=== PATIENT | male | born 1960 | race Caucasian/White ===

== ENCOUNTER 2022-02-06 14:00 | Emergency (ER) | payer OTHER, BC, SELFPAY ==
[2022-02-06 14:16] VITALS: BP 174/114; PULSE 78; RESP 12; TEMP 36.4; O2SAT 97; BMI 25.1
[2022-02-06] MEDS: predniSONE 20 MG TABLET 60 MG PO (14:52)
[2022-02-06] MEDS: KETOROLAC 30 MG/ML inj IM (14:52)
--- NOTE | 2022-02-06 14:57 | ED.NURSE ---
Medication administered per OCT for 05/21 back pain. Appointment found for fundraising specialist.
--- NOTE | 2022-02-06 16:13 | ED.BACK ---
HPI - Back Pain/Injury General Date Seen: 02/06/22 Chief Complaint: Back Injury/Pain Stated Complaint: lower back pain Time Seen by Provider: 02/06/22 14:21 Source: patient Mode of arrival: ambulatory History of Present Illness HPI Narrative: Patient is a 61-year-old male who presents with lower back pain and tingling in his right leg. Symptoms have been present for a couple of weeks. He saw Dr. Watkins in the clinic and had an MRI done on January 31. Results of that showed a new 12 mm disc extrusion at T12-L1, with central canal narrowing and impingement of the L1 nerve root. He also has a disc bulge at L4-5 which is unchanged but shows possible L5 and/or L4 nerve root compression. He complains of moderate to severe pain across his low back. He does not have significant pain radiating to the right leg but he does have tingling down the anterior right leg and also feels that it is somewhat difficult to walk because of some clumsiness in the right leg. He does not have any bowel or bladder changes. No fevers or night sweats. He has been taking ibuprofen or Tylenol but says those are helping with pain. Was not prescribed anything else. He has an appointment with [facility] on February 19, and he is somewhat frustrated that he has to wait that long. He also has been out of his blood pressure medicine and wondered if I could help refill that, but he does not know what he takes. Related Data Previous Rx's Medication Instructions Recorded oxycodone 5 mg tablet 5 mg PO Q6H PRN #10 tab 02/06/22 prednisone 20 mg tablet See Rx Instructions .ROUTE 02/06/22 .COMPLEX #24 tab Review of Systems Status of ROS: Reports: 10 or more systems reviewed and unremarkable except as noted in History and below PFSH PFSH Medical History Hyperlipidemia Hypertension Surgical History No significant past surgical history Social History Smoking Status: Current every day smoker What tobacco products do you use: cigarettes Do you use any of these nicotine containing products: None Second hand tobacco smoke exposure: Yes How often do you have a drink containing alcohol: never AUDIT-C Alcohol total score: 0 Non-prescribed substance use: denies use service: No Exam Const: Vital Signs, click to edit/add: Vital Signs - 24 hr 02/06/22 14:16 Temperature 97.6 F Pulse Rate [Pulse Oximeter] 78 Respiratory Rate 12 Blood Pressure [Ri ght Upper Arm] 174/114 H Pulse Oximetry 97 Documenting provider has reviewed patient's vital signs: yes Common normals: oriented x3 General appearance: cooperative and well kempt Other: Nontoxic male, looks mildly uncomfortable. HENMT: Common normals: normocephalic Head and scalp: normocephalic Eye: Common normals: PERRL General eye: normal appearance of both eyes Pupil: PERRL Neck & C-Spine: Common normals: full ROM and supple Resp: Common normals: normal respiratory effort and clear to auscultation bilaterally Auscultation: clear to auscultation bilaterally Cardio: Common normals: regular rate and no murmurs Rate: regular rate GI: Common normals: Normal to inspection, nondistended, normoactive bowel sounds present and non-tender Back & Pelvis: Common normals: thoracic and lumbar spine normal to inspection Thoracic spine/upper back: normal to inspection Lumbar spine/lower back: normal to inspection, ROM limited, pain with ROM and paraspinal muscle tenderness Other: Diffuse right-sided lumbar tenderness. Extremity: Common normals: normal to inspection Neuro: Common normals: oriented x3 and moves all extremities Other: Patient has 5/5 strength on the left lower extremity. On the right, he does seem to have slight weakness of dorsiflexion of the great toe, though there may be a component of decreased cooperation secondary to pain. Difficult to assess plantar flexion secondary to cooperation. Notes tingling with light touch to the right thigh. Psych: Common normals: mental status grossly normal and thought process normal Appearance: well kempt Thought process: normal thought process Course Course Hospital Course: Patient had 30 mg of Toradol IM and 60 mg of prednisone here. He actually feels improved after those medications. I reviewed his records, including his lumbar spine MRI from January 31. I did call our spine clinic here but we do not apparently have a spine surgeon until March. Thus, I think his appointment on February 19 is going to be the best we can do. I am going to discharge him on a prednisone taper which should last him until his appointment. I gave him oxycodone 10., recommend ibuprofen 400+ Tylenol 1000 mg 3 times daily in the meantime. Vital Signs Vital signs: Initial Vital Signs Temperature 97.6 F 02/06/22 14:16 Temperature Source Temporal Artery Scan 02/06/22 14:16 Pulse Rate 78 02/06/22 14:16 Pulse Rhythm 02/06/22 14:16 Respiratory Rate 12 02/06/22 14:16 Blood Pressure 174/114 H 02/06/22 14:16 Blood Pressure Mean 134 02/06/22 14:16 Blood Pressure Position Sitting 02/06/22 14:16 Pulse Oximetry 97 02/06/22 14:16 Oxygen Delivery Method 02/06/22 14:16 Vital Signs Temperature 97.6 F 02/06/22 14:16 Pulse Rate 78 02/06/22 14:16 Respiratory Rate 12 02/06/22 14:16 Blood Pressure 174/114 H 02/06/22 14:16 Pulse Oximetry 97 02/06/22 14:16 Temperature 97.6 F 02/06/22 14:16 Pulse Rate 78 02/06/22 14:16 Respiratory Rate 12 02/06/22 14:16 Blood Pressure 174/114 H 02/06/22 14:16 Pulse Oximetry 97 02/06/22 14:16 Discharge Plan Discharge Clinical Impression: Lumbar radiculopathy Patient Disposition: Home, Self-Care Condition: Stable Instructions: Lumbar Radiculopathy (ED) Additional Instructions: Medications as prescribed. Recommend a combination ibuprofen 400 mg plus Tylenol 1000 mg 3 times daily with food. Oxycodone can be used for uncontrolled pain. Follow up on February 19 as scheduled. Prescriptions: New prednisone 20 mg tablet See Rx Instructions .ROUTE .COMPLEX Qty: 24 0RF Rx Instructions: 20 mg orally ;Take 3 tabs daily for 4 days, then 2 tabs daily for 4 days, then 1 tab daily for 4 days oxycodone 5 mg tablet 5 mg PO Q6H PRN (Reason: pain) Qty: 10 0RF Follow Up/Referrals: Rm Stevens MD [Primary Care Provider] - Stand Alone [facility]
== END 2022-02-06 16:10 | disposition home or self-care (01) ==
LOC: ED 15:09
PROVIDERS: Emergency Provider Emergency Medicine; PCP Family Medicine
DX: U07.1 COVID-19 (principal)
CPT/HCPCS: 96372; 99283; 99284; J1885; J7512

== ENCOUNTER 2022-02-21 12:38 | Outpatient (CLI) | payer OTHER, BC, SELFPAY ==
--- NOTE | 2022-02-21 13:00 | CRLHL7_ITS ---
For Patients: As a result of the Century Cures Act, medical imaging exams and procedure reports are released immediately into your electronic medical record. You may view this report before your referring provider. If you have questions, please contact your health care provider. INDICATION: Bilateral finger numbness. Cervical spine stenosis. COMPARISON: None. TECHNIQUE: Sagittal T1, T2, and STIR sequences. Axial T2/gradient sequences. FINDINGS: Straightening of the normal cervical lordosis which may be due to most spasm or patient positioning. Otherwise, normal vertebral body facet alignment. No fractures. No vertebral body loss of height. No spondylolisthesis. No ligamentous injury. No suspicious osseous lesions. Normal cord signal. No intradural mass or lesion. C1-2: No spinal canal narrowing. C2-3: No spinal canal neural foraminal narrowing. C3-4: Mild disc degeneration posterior disc bulge. No narrowing of spinal canal. No neural foraminal narrowing. C4-5: Mild disc degeneration posted disc bulge. Mild narrowing of spinal canal. No neural foraminal narrowing. C5-6: Disc degeneration and broad-based disc osteophyte complex. Moderate narrowing of spinal canal. Moderate severe narrowing of the bilateral foramina with impingement of the C6 nerve roots. C6-7: Disc degeneration broad-based disc osteophyte complex. Moderate narrowing of spinal canal. Moderate right and severe left neural foraminal narrowing. Impingement of the left C7 nerve root. C7-T1: No spinal canal or neural foraminal narrowing. IMPRESSION: 1. Straightening of the normal cervical lordosis. Otherwise, normal alignment. No fractures 2. Normal cord signal. 3. Cervical spondylosis. 4. At C4-5, mild narrowing of the spinal canal 5. At C5-6, moderate narrowing of the spinal canal. Moderate to severe narrowing of the bilateral neural foramina with impingement of the C6 nerve roots. 6. At C6-7, moderate narrowing of the spinal canal. Moderate right and severe left neural foraminal narrowing. Impingement of the left C7 nerve root Dictated by Maged Agustin MD @ 02/21/2022 3:33:33 PM (Electronically Signed)
--- NOTE | 2022-02-21 13:45 | CRLHL7_ITS ---
For Patients: As a result of the 21st Century Cures Act, medical imaging exams and procedure reports are released immediately into your electronic medical record. You may view this report before your referring provider. If you have questions, please contact your health care provider. INDICATION: Bilateral lower extremity numbness. Cervical stenosis. COMPARISON: None. TECHNIQUE: Sagittal T1, T2, and STIR sequences. Axial T2/gradient sequences. FINDINGS: Mild upper thoracic curve convex the left midthoracic curve convex to the right. In sagittal plane, normal vertebral body facet alignment. No fractures. No vertebral body loss of height. No ligamentous injury. No suspicious osseous lesions. Normal cord signal. No intradural mass or lesion. Thoracic spondylosis with multilevel disc degeneration and facet arthropathy. T4-5: Mild disc degeneration. No spinal canal neural foraminal narrowing. T5-6: Mild disc generation. No spinal canal or neural foraminal narrowing. T7-8: Disc degeneration and shallow left paracentral disc bulge. No narrowing of spinal canal. No neural foraminal narrowing. T8-9: Disc degeneration. Shallow left paracentral disc bulge. No narrowing of spinal canal. Mild narrowing of the left neural foramen. No narrowing of the right neuroforamen. T9-10: Disk degeneration posterior disc bulge. Mild narrowing of spinal canal. Mild narrowing of bilateral foramina. T10-11: Disc degeneration posterior disc bulge. Mild narrowing of spinal canal. Mild narrowing of the bilateral foramina. T11-12: Disc degeneration. Posterior disc bulge. Left foraminal and extraforaminal disc herniation measures approximately 3 mm in short axis. [id number] narrowing of spinal canal. Mild narrowing of the left neural foramen. No narrowing of the right neural foramen. T12-L1: Disc generation with a right paracentral subarticular disc protrusion measuring approximately 5 mm in short axis (best seen on series 3, image 7). Moderate narrowing of spinal canal. Moderate narrowing of the right neural foramen with potential impingement of the exiting right T12 nerve root. No narrowing of the left neural foramen. There is marrow edema of the articular processes of the right facet joint which may represent stress reaction or inflammation. Normal paraspinal soft tissues. IMPRESSION: 1. Normal alignment. No fractures. 2. Normal cord signal. 3. Thoracic spondylosis. 4. At T8-9, shallow left paracentral disc bulge. No narrowing of the spinal canal. Mild narrowing of the left neural foramina 5. At T9-10 and T10-11, mild narrowing the spinal canal and bilateral neural foramina 6. At T11-12, left foraminal extraforaminal disc herniation. Mild to moderate narrowing of spinal canal. Mild narrowing of the left neuroforamen. 7. At T12-L1, right paracentral and subarticular disc protrusion. Moderate narrowing of spinal canal and right neuroforamen. Potential impingement of the exiting right T12 nerve root Dictated by Maged Agustin MD @ 02/21/2022 3:42:45 PM (Electronically Signed)
== END 2022-02-21 12:39 | disposition home or self-care (01) ==
PROVIDERS: PCP Family Medicine; Visit Provider Orthopaedic Surgery Orthopaedic Surgery of the Spine
DX: M48.02 Spinal stenosis, cervical region (principal); M50.221 Other cervical disc displacement at C4-C5 level; M50.222 Other cervical disc displacement at C5-C6 level; M50.223 Other cervical disc displacement at C6-C7 level; M51.24 Other intervertebral disc displacement, thoracic region; M51.25 Other intervertebral disc displacement, thoracolumbar region; M48.04 Spinal stenosis, thoracic region; R20.0 Anesthesia of skin
CPT/HCPCS: 72141; 72146

== ENCOUNTER 2022-03-07 15:16 | Outpatient (CLI) | payer OTHER, BC, SELFPAY ==
[2022-03-07 14:27] LABS: Alanine Aminotransferase* 21 U/L (4-50); Cholesterol* 224 mg/dL (90-199); HDL Cholesterol* 46 mg/dL (>=40); LDL Cholesterol Calculated 129 mg/dL (<100); Triglycerides* 245 mg/dL (40-149)
== END 2022-03-07 15:17 | disposition home or self-care (01) ==
PROVIDERS: PCP Family Medicine; Visit Provider Family Medicine
DX: E78.5 Hyperlipidemia, unspecified (principal); I10 Essential (primary) hypertension; E78.00 Pure hypercholesterolemia, unspecified
CPT/HCPCS: 80061; 84460

== ENCOUNTER 2022-06-19 08:01 | Outpatient (CLI) | payer BC, SELFPAY ==
[2022-06-19 14:27] LABS: Cholesterol* 140 mg/dL (90-199)
[2022-06-19 14:28] LABS: Alanine Aminotransferase* 25 U/L (4-50); HDL Cholesterol* 49 mg/dL (>=40); LDL Cholesterol Calculated 66 mg/dL (<100); Triglycerides* 127 mg/dL (40-149)
== END 2022-06-19 08:02 | disposition home or self-care (01) ==
PROVIDERS: PCP Family Medicine; Visit Provider Family Medicine
DX: E78.5 Hyperlipidemia, unspecified (principal); E78.00 Pure hypercholesterolemia, unspecified
CPT/HCPCS: 36415; 80061; 84460

== ENCOUNTER 2022-07-09 13:45 | Outpatient (RCR) | payer OTHER, BC, SELFPAY | END 2022-10-24 11:50 | disposition home or self-care (01) | PROVIDERS: PCP Family Medicine; Visit Provider Orthopaedic Surgery Orthopaedic Surgery of the Spine | DX: M48.062 Spinal stenosis, lumbar region with neurogenic claudication (principal); Z51.89 Encounter for other specified aftercare | CPT/HCPCS: 97110; 97112; 97162 ==

== ENCOUNTER 2022-08-09 12:49 | Outpatient (CLI) | payer OTHER, BC, SELFPAY ==
--- NOTE | 2022-08-09 13:00 | CRLHL7_ITS ---
For Patients: As a result of the Century Cures Act, medical imaging exams and procedure reports are released immediately into your electronic medical record. You may view this report before your referring provider. If you have questions, please contact your health care provider. Indication: Lumbar spine stenosis Technique: Multiplanar, multisequence, MRI of the lumbar spine, obtained without contrast. Comparison: MRI lumbar spine 01/31/2022 Findings: Lumbar dextrocurvature. Preserved lordosis. No significant spondylolisthesis. No acute fracture. Chronic anterior wedge configuration of T12-L2. Prominent superior endplate Schmorl`s nodes at L2 and L3. Modic type 1 degenerative endplate marrow signal changes at L3-4. Modic type 2 degenerative marrow signal changes at L2-3 and L5-S1. The conus medullaris terminates at approximately L1-2. Included SI joints are unremarkable. No suspicious findings in the prevertebral and paraspinal soft tissues. A few tiny cystic appearing foci in the included kidneys and right hepatic lobe. T12-L1: Disc bulge, facet arthropathy. Moderate spinal canal stenosis. Moderate right foraminal stenosis. No left foraminal stenosis. L1-L2: Disc bulge, facet arthropathy. Moderate-severe spinal canal stenosis. Mild left foraminal narrowing. No right foraminal stenosis. L2-L3: Disc bulge, facet arthropathy. Moderate spinal canal stenosis. Moderate left foraminal stenosis. No right foraminal stenosis. L3-L4: Disc bulge, facet arthropathy. Moderate spinal canal stenosis. Mild right, moderate-severe left foraminal stenosis. L4-L5: Disc bulge, facet arthropathy. Mild spinal canal narrowing with possible impingement of the descending right L5 nerve root along the lateral recess. Moderate bilateral foraminal stenosis. L5-S1: Disc bulge, facet arthropathy. Mild-moderate right foraminal narrowing. No left foraminal or spinal canal stenosis. Impression: 1. No acute osseus abnormality. Chronic anterior wedge configuration of T12-L2. 2. Lumbar spondylosis as detailed, similar to minimally progressed relative to 01/31/2022. 3. At T12-L1, moderate spinal canal stenosis and moderate right foraminal stenosis. 4. At L1-2, moderate-severe spinal canal stenosis. 5. At L2-3, moderate spinal canal stenosis and moderate left foraminal stenosis. 6. At L3-4, moderate spinal canal stenosis and moderate-severe left foraminal stenosis. 7. At L4-5, possible impingement of the descending right L5 nerve root along the narrowed lateral recess. Dictated by Savannah Dorsey MD @ 08/10/2022 1:09:35 PM (Electronically Signed)
--- NOTE | 2022-08-09 13:45 | CRLHL7_ITS ---
For Patients: As a result of the Century Cures Act, medical imaging exams and procedure reports are released immediately into your electronic medical record. You may view this report before your referring provider. If you have questions, please contact your health care provider. Indication: Thoracic stenosis Technique: Multiplanar, multisequence MRI of the thoracic spine, obtained without contrast. Comparison: MRI thoracic spine 02/21/2022 Findings: Partially visualized ACDF changes spanning C5-7. No acute fracture. No significant spondylolisthesis. Chronic anterior wedge configuration of T10-L1, similar to previous. No cortical retropulsion. Multilevel spondylosis, including scattered shallow disc bulges/protrusions, multilevel facet arthropathy and ligamentum flavum laxity. At T9-10: Mild spinal canal narrowing and mild bilateral foraminal narrowing. At T10-11,: Mild-moderate spinal canal narrowing and mild-moderate bilateral foraminal narrowing. At T11-T12: Mild spinal canal narrowing. At T12-L1: Moderate spinal canal stenosis and moderate right neural foraminal stenosis. No other significant foraminal or spinal canal narrowing elsewhere in the thoracic spine. The visualized spinal cord appears normal in course, caliber, and intrinsic signal. The prevertebral and paraspinal soft tissues are unremarkable. Impression: 1. No acute fracture or significant spondylolisthesis. Partially visualized C5-7 ACDF changes. Chronic anterior wedge configuration of T10-L1. 2. Multilevel thoracic spondylosis, greatest in the lower levels, similar to the prior study. 3. At T9-10, mild spinal canal narrowing and mild bilateral foraminal narrowing. 4. At T10-T11, mild-moderate spinal canal narrowing, and mild-moderate bilateral foraminal narrowing. 5. At T11-T12, mild spinal canal narrowing. 6. At T12-L1, moderate spinal canal stenosis and moderate right foraminal stenosis. Dictated by Savannah Dorsey MD @ 08/10/2022 12:49:14 PM (Electronically Signed)
== END 2022-08-09 12:50 | disposition home or self-care (01) ==
LOC: MRI 12:51
PROVIDERS: PCP Family Medicine; Visit Provider Orthopaedic Surgery Orthopaedic Surgery of the Spine
DX: M48.062 Spinal stenosis, lumbar region with neurogenic claudication (principal); M48.04 Spinal stenosis, thoracic region; M47.896 Other spondylosis, lumbar region; M48.061 Spinal stenosis, lumbar region without neurogenic claudication
CPT/HCPCS: 72146; 72148

== ENCOUNTER 2023-01-21 13:00 | Outpatient (RCR) | payer OTHER, BC, SELFPAY | END 2023-05-21 23:59 | disposition home or self-care (01) | PROVIDERS: PCP Family Medicine; Visit Provider Orthopaedic Surgery Orthopaedic Surgery of the Spine | DX: Z48.89 Encounter for other specified surgical aftercare (principal); R26.9 Unspecified abnormalities of gait and mobility; R53.1 Weakness; R26.81 Unsteadiness on feet; M79.606 Pain in leg, unspecified; M79.673 Pain in unspecified foot; R20.2 Paresthesia of skin; Z51.89 Encounter for other specified aftercare | CPT/HCPCS: 97110; 97112; 97162 ==

== ENCOUNTER 2023-01-31 06:50 | Day surgery (SDC) | payer OTHER, BC, SELFPAY ==
[2023-01-31 07:16] VITALS: BMI 25.5
[2023-01-31 07:19] VITALS: BP 130/88; PULSE 69; RESP 16; TEMP 36.6; O2SAT 97
[2023-01-31] MEDS: SODIUM CHLORIDE 0.9 % (FLUSH) 10 ML SYRINGE IVF (07:35)
[2023-01-31] MEDS: LACTATED RINGERS 1000 ML 1,000 ML 100 ML IV (07:35)
--- NOTE | 2023-01-31 08:58 | W.ANESCHARGE ---
Anesthesia Charges Start Date/Time Anesthesia Start Date: 01/31/23 Anesthesia Start Time: 09:28 Stop Date/Time Anesthesia Stop Date: 01/31/23 Anesthesia Stop Time: 10:10
[2023-01-31] MEDS: CEFAZOLIN 2 GM INJ IVP (09:40)
[2023-01-31] MEDS: BUPIVACAINE 0.25% 30 ML INJECTION (09:53)
[2023-01-31 10:08] VITALS: BP 118/81; PULSE 72; RESP 16; TEMP 36.6; O2SAT 95
--- NOTE | 2023-01-31 10:14 | W.ANESCHARGE ---
Anesthesia Charges Start Date/Time Anesthesia Start Date: 01/31/23 Anesthesia Start Time: 09:28 Stop Date/Time Anesthesia Stop Date: 01/31/23 Anesthesia Stop Time: 10:10
[2023-01-31 10:15] VITALS: BP 124/89; PULSE 67; RESP 16; O2SAT 97
[2023-01-31 10:30] VITALS: BP 132/82; PULSE 65; RESP 16; O2SAT 97
--- NOTE | 2023-01-31 10:35 | PM.GSPRC ---
Operative Note Date of procedure: 01/31/23 Pre-op diagnosis: Mass of the left groin Post-op diagnosis: Same Type of Procedure: Excision of left groin mass Indications: Patient presented to clinic with a symptomatic mass of the left groin following a procedure he had in August. This was worked up with ultrasound and consistent with a postoperative calcification versus scar tissue verses calcified lymph node. Given the symptomatic nature of the mass risks and benefits of excision were discussed at length with the patient. Risks included, but were not limited to: Bleeding, infection, risk of damage to surrounding structures, risk of seroma, risk of lymphatic leak and possible need for additional procedures. All questions concerns were addressed with patient agreeing to proceed. Procedure Description: After discussing the risks and benefits of the procedure, the patient signed informed consent.? The operative site was marked and the patient was brought to the operating room and placed on the operating table in supine position.? Care was taken to pad the patient's pressure points.?? The patient was then given sedation by anesthesia.?? The operative site was then prepped and draped in the usual sterile fashion.? A time-out was then performed. The area was prepped and draped in sterile fashion. The area was anesthetized with local anesthetic. A vertical incision was made with a scalpel directly over the mass, which was mobile within the subcutaneous space. Dissection was carried down through subcutaneous tissue. The mass was encountered, an Allis clamp was applied and brought into the operative field. And overlying nerve was stretched over the mass. This was carefully dissected away, taking care not to injure the associated vasculature or nerve itself. The mass was then dissected out circumferentially. A small pedicle was seen, this was tied off with 3 0 Vicryl. The mass was then removed and sent to pathology for further evaluation. Hemostasis was assured with electrocautery. The incision was closed in layers of interrupted 3 0 Vicryl and running 4-0 Monocryl subcuticular stitch. Sterile dressings were then applied. ? The patient was then woken and transported to the recovery area in stable condition. ? The patient tolerated the procedure well. Findings: Mass of the left groin. Anesthesia: MAC and local Surgeon: Meredith Leung MD Estimated blood loss (mL): 1 Additional Specimen Information: Mass of the left groin Condition: stable Disposition: same day
[2023-01-31 10:45] VITALS: BP 132/92; PULSE 68; RESP 16; O2SAT 97
== END 2023-01-31 11:00 | disposition home or self-care (01) ==
PROVIDERS: PCP Family Medicine; Visit Provider Surgery
PROC: (CPT 11406; principal; 2023-01-31 08:30)
DX: R22.2 Localized swelling, mass and lump, trunk (principal); D17.39 Benign lipomatous neoplasm of skin and subcutaneous tissue of other sites
CPT/HCPCS: 11406; 12031; 00400; 88305; J0690; J2250; J2704; J3490; J7120

== ENCOUNTER 2025-02-24 13:46 | Outpatient (CLI) | payer MEDICARE, SELFPAY | END 2025-02-24 13:47 | disposition home or self-care (01) | LOC: LKVREF 13:50 | PROVIDERS: PCP Family Medicine; Visit Provider Nurse Practitioner Family | DX: E78.00 Pure hypercholesterolemia, unspecified (principal); I10 Essential (primary) hypertension; Z12.5 Encounter for screening for malignant neoplasm of prostate | CPT/HCPCS: 80053; 80061; G0103 ==

== ENCOUNTER 2025-03-03 10:47 | Outpatient (CLI) | payer MEDICARE, SELFPAY ==
--- NOTE | 2025-03-03 11:00 | CRLHL7_ITS ---
For Patients: As a result of the Century Cures Act, medical imaging exams and procedure reports are released immediately into your electronic medical record. You may view this report before your referring provider. If you have questions, please contact your health care provider. INDICATION: High risk patient presenting for LDCT lung cancer screening. VISIT TYPE: Baseline COMPARISON: None available. TECHNIQUE: Low dose CT of the chest without intravenous contrast. Please note that all CT scans at this facility use dose modulation, iterative reconstruction, and/or weight-based dosing when appropriate to reduce radiation dose to as low as reasonably achievable. FINDINGS: Lung Screening Specific (LUNG-RADS) Findings: Bilateral pulmonary nodules, largest measuring 4.7 mm in mean diameter located in the left upper lobe (series 3; image 80). Pulmonary Incidental Findings: Benign calcified right lower lobe granuloma. Bilateral calcified hilar lymph nodes are also consistent with the sequela of old granulomatous disease. Bilateral lower lobe posterior/dependent subpleural curvilinear opacities consistent with minor fibrosis. Potentially Significant (S-Positive) Incidental Findings: None. Please note that emphysema and coronary artery calcifications are not routinely categorized as S-Positive findings as both conditions are expected among individuals eligible for lung cancer screening. Furthermore, findings that are already known and/or have been or are in the process of clinical evaluation also do not require an S modifier per Lung-RADS 2022 guidelines. Other Incidental Findings: Mild coronary artery calcifications are noted, without significant change. PCP evaluation for ASCVD (atherosclerotic cardiovascular disease) risk assessment is recommended per lung cancer screening guidelines, if not already done. Simple hepatic cysts in the superior right hepatic lobe, the larger measuring 2.3 cm in AP dimension (5; 144). A smaller cyst measuring 1.0 cm is immediately adjacent (2; 127). Incompletely imaged cervical and thoracolumbar spinal fusion hardware. Advanced disc degeneration at T8-T9 and T9-T10. Bilateral glenohumeral osteoarthrosis. IMPRESSION: 1. Lung-RADS category 2 benign pulmonary nodules. 2. No significant incidental findings. Additional findings as above. Lung-RADS Category 2 Lung-RADS Modifier: None Recommendation: Recommend continued screening, if eligible, with a LDCT in 12 months. Please note that all CT scans at this facility use dose modulation, iterative reconstruction, and/or weight-based dosing when appropriate to reduce radiation dose to as low as reasonably achievable. Dictated by Mayito Mariee MD @ 03/08/2025 7:27:16 AM (Electronically Signed)
== END 2025-03-03 10:48 | disposition home or self-care (01) ==
LOC: CT 10:49
PROVIDERS: PCP Nurse Practitioner Family; Visit Provider Nurse Practitioner Family
DX: Z12.2 Encounter for screening for malignant neoplasm of respiratory organs (principal); R91.8 Other nonspecific abnormal finding of lung field; Z87.891 Personal history of nicotine dependence
CPT/HCPCS: 71271

== ENCOUNTER 2025-03-15 09:38 | Outpatient (CLI) | payer MEDICARE, SELFPAY ==
--- NOTE | 2025-03-15 11:09 | P.ANES_ITS ---
Anesthesia Charges Start Date/Time Anesthesia Start Date: 03/15/25 Anesthesia Start Time: 10:45 Stop Date/Time Anesthesia Stop Date: 03/15/25 Anesthesia Stop Time: 11:08 Coding CPT Codes CPT Codes: ANGELA LWR INTST NDSC NOS - [id number] ([id number]) P2 - PATIENT W/MILD SYST DISEASE, QK - IT SOLUTIONS SALES CONSULTANT 2-4 CNCRNT ANES PROC, QX - LOCOMOTIVE OPERATOR HELPER SVC W/ MD MED DIRECTION
--- NOTE | 2025-03-15 11:09 | W.ANESCHARGE ---
Anesthesia Charges Start Date/Time Anesthesia Start Date: 03/15/25 Anesthesia Start Time: 10:45 Stop Date/Time Anesthesia Stop Date: 03/15/25 Anesthesia Stop Time: 11:08 Coding CPT Codes CPT Codes: ANGELA LWR INTST NDSC NOS - 04603 ([id number]) P2 - PATIENT W/MILD SYST DISEASE, QK - SCIENCE INTERPRETER 2-4 CNCRNT ANES PROC, QX - PRECISION ASSEMBLER SVC W/ MD MED DIRECTION
--- NOTE | 2025-03-16 09:08 | P.ANES_ITS ---
Anesthesia Charges Start Date/Time Anesthesia Start Date: 03/15/25 Anesthesia Start Time: 10:45 Stop Date/Time Anesthesia Stop Date: 03/15/25 Anesthesia Stop Time: 11:08 Coding CPT Codes CPT Codes: ANGELA LWR INTST NDSC NOS - [id number] ([id number]) P2 - PATIENT W/MILD SYST DISEASE, QK - BUSINESS SYSTEMS MANAGER 2-4 CNCRNT ANES PROC, QX - MERCURY PURIFIER SVC W/ MD MED DIRECTION
--- NOTE | 2025-03-16 09:08 | W.ANESCHARGE ---
Anesthesia Charges Start Date/Time Anesthesia Start Date: 03/15/25 Anesthesia Start Time: 10:45 Stop Date/Time Anesthesia Stop Date: 03/15/25 Anesthesia Stop Time: 11:08 Coding CPT Codes CPT Codes: ANGELA LWR INTST NDSC NOS - [id number] ([id number]) P2 - PATIENT W/MILD SYST DISEASE, QK - FINANCIAL ADVOCATE 2-4 CNCRNT ANES PROC, QX - UNIX ANALYST SVC W/ MD MED DIRECTION
== END 2025-03-15 09:39 | disposition home or self-care (01) ==
LOC: OP CLINIC 09:41
PROVIDERS: PCP Nurse Practitioner Family; Visit Provider Internal Medicine
DX: Z12.11 Encounter for screening for malignant neoplasm of colon (principal); D12.2 Benign neoplasm of ascending colon; K57.30 Diverticulosis of large intestine without perforation or abscess without bleeding
CPT/HCPCS: 00811; 00812; 45380; 88305; J2704